=== PATIENT | female | born 1965 | race Caucasian/White ===

== ENCOUNTER → 2019-01-21 | Outpatient (CLI) | payer BC ==
[~2019-01-21] MED LIST: BAC PO; CEP500 PO; FAM20 PO; FAMO-1 PO; HYDR-2946 PO; IBU600 PO; IBU800 PO; LEV100 PO; PHENA200 PO
== END ==
LOC: AUD 10:30
PROVIDERS: ATTEND Otolaryngology
DX: H91.93 Unspecified hearing loss, bilateral (principal)
CPT/HCPCS: 92557